=== PATIENT | male | born 1960 | race Caucasian/White ===

== ENCOUNTER 2019-12-02 19:24 | Emergency (ER) | payer BC, MEDICAID ==
[~2019-12-02] VITALS: Ht 175.3 cm; Wt 72.6 kg
[2019-12-02 21:47] VITALS: BP 108/77
== END 2019-12-02 22:17 | disposition home or self-care (01) ==
LOC: ER 19:24
DX: L03.113 Cellulitis of right upper limb (principal)
CPT/HCPCS: 73080